=== PATIENT | male | born 1990 | race Caucasian/White ===

== ENCOUNTER 2018-04-19 00:45 | Emergency (ER) | payer OTHER ==
[~2018-04-19] VITALS: Ht 177.8 cm; Wt 68.0 kg
[2018-04-19 00:50] VITALS: BP 127/55
--- NOTE | 2018-04-19 00:50 | NUR ---
ED Nurse Note: pt brought in by ambulance due to status post seizure. pt is alert oriented upon arrival. pt stated he was on a concert and the loud noise there triggered the attack. pt stated he has previous history of seizure due to brain tumor. denies pain. pt has iv g 18 on left ac upon arrival. vss. will continue to monitor.
[2018-04-19] MEDS ORDERED: KEPPRA750 MG ORAL (00:51)
[2018-04-19] MEDS ORDERED: levETIRAcetam 500mg/NS100ml 100 ML IVPB ONE (01:00)
--- NOTE | 2018-04-19 01:31 | Emergency Room Report ---
History of Present Illness General Chief Complaint: Seizure Source: Patient Present Illness HPI Is a 27-year-old male with a history of malignant brain cancer. He had chemotherapy and radiation and appear to be in remission. Now is coming back. He has an appointment with neurosurgeon tomorrow. He also has a history of seizure. He take Keppra for it. He was in a nightclub and had a brief seizure activity. No oral trauma. No incontinence of urine. Initially was postictal but back to baseline now. No other injury. Allergies: Coded Allergies: No Known Allergies (Unverified , 04/19/18) Patient History Past Medical History: see triage record, old chart reviewed, seizures Past Surgical History: other Pertinent Family History: none Social History: Denies: smoking Immunizations: other Reviewed Nursing Documentation: PMH: Agreed; PSxH: Agreed Nursing Documentation-PMH Past Medical History: No History, Except For Hx Neurological Problems: Yes - brain tumor Hx Seizures: Yes Review of Systems Eye: Denies: eye pain, blurred vision ENT: Denies: ear pain, nose congestion, throat swelling Respiratory: Denies: cough, shortness of breath Cardiovascular: Denies: chest pain, palpitations Gastrointestinal: Denies: abdominal pain, diarrhea, nausea, vomiting Musculoskeletal: Denies: back pain, joint pain Skin: Denies: rash Neurological: Denies: headache, numbness Endocrine: Denies: increased thirst, increased urine Hematologic/Lymphatic: Denies: easy bruising All Other Systems: negative except mentioned in HPI Physical Exam Vital Signs Date Time Temp Pulse Resp B/P (MAP) Pulse Ox O2 Delivery O2 Flow Rate FiO2 04/19/18 00:47 98.1 120 16 127/55 99 Room Air vitals normal except tachycardia Sp02 EP Interpretation: reviewed, normal General Appearance: well appearing, no apparent distress, alert Head: normocephalic, atraumatic Eyes: bilateral eye PERRL, bilateral eye EOMI ENT: hearing grossly normal, normal pharynx Neck: full range of motion, supple, no meningismus Respiratory: chest non-tender, lungs clear, normal breath sounds Cardiovascular #1: regular rate, rhythm, no murmur Gastrointestinal: normal bowel sounds, non tender, no mass, no organomegaly, no bruit, non-distended Musculoskeletal: back normal, gait/station normal, normal range of motion Psychiatric: mood/affect normal Skin: warm/dry Medical Decision Making Diagnostic Impression: Primary Impression: Epileptic seizure, generalized ER Course Patient presents with a breakthrough seizure. We'll monitor dose of Keppra here. We'll discharge home. Patient is back to baseline. His friend will pick him up. He does not drive. Last Vital Signs Date Time Temp Pulse Resp B/P (MAP) Pulse Ox O2 Delivery O2 Flow Rate FiO2 04/19/18 00:50 98 16 Room Air 04/19/18 00:50 98.0 127/55 100 Status: improved Disposition: HOME, SELF-CARE Condition: Stable Patient Instructions: Seizure, Adult Additional Instructions: Follow-up with your doctor tomorrow. Return if worse. Lincoln Wilburn MD Apr 19, 2018 01:31
[2018-04-19 01:39] VITALS: BP 115/75
--- NOTE | 2018-04-19 01:42 | NUR ---
ED Nurse Note: keppa iv given in the ed. ermd cleared pt for discharge, no episode of seizure noted. pt's friend in the ed to pick pt. pt walked with steady gait. vss. id band removed. pt left the ed with all belongings.
== END 2018-04-19 01:40 | disposition home or self-care (01) ==
LOC: EDBD 00:45 → EMR 01:30
DX: G40.409 Other generalized epilepsy and epileptic syndromes, not intractable, without status epilepticus (principal); Z85.841 Personal history of malignant neoplasm of brain
CPT/HCPCS: 96374; 99284; J1953